=== PATIENT | male | born 1985 | race Caucasian/White ===

== ENCOUNTER 2017-10-20 19:50 | Emergency (ER) | payer BC | END 2017-10-20 22:46 | disposition home or self-care (01) | LOC: D.ER 19:50 | DX: S00.81XA Abrasion of other part of head, initial encounter (principal); V19.9XXA Pedal cyclist (driver) (passenger) injured in unspecified traffic accident, initial encounter; Y93.55 Activity, bike riding; Y92.830 Public park as the place of occurrence of the external cause; S40.212A Abrasion of left shoulder, initial encounter; S42.032A Displaced fracture of lateral end of left clavicle, initial encounter for closed fracture; I10 Essential (primary) hypertension ==